=== PATIENT | female | born 1990 | race African-American/Black ===

== ENCOUNTER 2021-10-04 15:26 | Observation (INO) | payer OTHER ==
[2021-10-04 17:03] VITALS: BMI 34.1
[2021-10-04] MEDS ORDERED: Bisacodyl 5 MG TAB PO PRN (18:23)
[2021-10-04] MEDS ORDERED: Acetaminophen 325 MG TAB PO PRN (18:23)
[2021-10-04] MEDS ORDERED: Senokot S 8.6-50 MG TAB PO PRN (18:23)
[2021-10-04] MEDS ORDERED: Polyethylene Glycol 3350 17 GM Packet PO PRN (18:27)
[2021-10-04] MEDS ORDERED: Aspirin 325 MG TAB PO SCH (18:30)
[2021-10-04 19:17] LABS: Troponin I 0.017 ng/mL (< 0.028)
[2021-10-04] MEDS: Famotidine 20 MG TAB PO SCH (20:10)
[2021-10-05 05:24] LABS: Hemoglobin 9.4 g/dL (12.0-16.0); Mean Corpuscular HGB CONC 29.6 g/dL (32.0-36.0); Mean Corpuscular Volume 70.9 fL (78.0-98.0); Mean Platelet Volume 5.9 fL (7.4-10.4); Platelet Count 357 thou/uL (130-400); RBC Distribution Width 23.6 % (11.5-14.5); Red Blood Cell (RBC) Count 4.47 mill/uL (4.20-5.40); White Blood Cell (WBC) Count 4.1 thou/uL (4.8-10.8)
[2021-10-05 05:31] LABS: Anion Gap 12 mmol/L (10-20); BUN (Urea Nitrogen) 9 mg/dL (7.0-18.7); Calc. Creatinine Clearance 144 mL/min (70-130); Calcium 9.2 mg/dL (7.8-10.44); Carbon Dioxide 24 mmol/L (22-29); Chloride 106 mmol/L (98-107); Estimated GFR 108; Glucose 102 mg/dL (70-105); Iron 38 ug/dL (50-170); Iron Binding Capacity, Total 353 mcg/dL (265-497); Potassium 3.4 mmol/L (3.5-5.1); Sodium 139 mmol/L (136-145)
[2021-10-05 05:42] LABS: Reticulocyte Count 1.1 % (0.5-1.5)
[2021-10-05 05:55] LABS: #Eosinphils 0.5 thou/uL (0.0-0.7); #Lymphocytes 1.4 thou/uL (1.20-3.40); #Monocytes 0.4 thou/uL (0.11-0.59); #Neutrophils 1.8 thou/uL (1.40-6.50); %Basophils 0.1 % (0.0-1.0); %Eosinophils 11.5 % (0.0-10.0); %Lymphocytes 34.5 % (21.0-51.0); %Monocytes 9.4 % (0.0-10.0); %Neutrophils 44.5 % (42.0-75.0); Anisocytosis SLIGHT = 6-15 cells (100X) (0-5/hpf); Elliptocytes MODERATE= 6-15 cells (100X) (0-1/hpf); MDiff Complete? YES; Microcytosis SLIGHT = 6-15 cells (100X) (0-5/hpf); Schistocytes SLIGHT = 2-5 cells (100X) (0-1/hpf)
[2021-10-05] MEDS: Aspirin 81 mg Enteric Coated Tablet PO SCH (08:17)
[2021-10-05] MEDS: Famotidine 20 MG TAB PO SCH ×2 (08:17→20:18)
[2021-10-05] MEDS: Polyethylene Glycol 3350 17 GM Packet PO SCH (08:17)
[2021-10-05] MEDS: Ferrous Gluconate 324 MG TAB PO SCH (08:17)
[2021-10-05] MEDS: Enoxaparin Sodium 40 MG/0.4 ML SYRINGE SC SCH (08:17)
[2021-10-05 12:27] LABS: Acetaminophen Less than 10.0 mcg/mL (10.0-30.0); Alcohol Less than 10 mg/dL (Less than 10); Salicylate Less than 8.0 mg/dL (15.0-30.0)
[2021-10-05 17:36] LABS: Amphetamine Detected (NotDetected); Barbiturates Screen Not Detected (NotDetected); Benzodiazepine Screen Not Detected (NotDetected); Cocaine Metabolite Screen Not Detected (NotDetected); Methadone Not Detected (NotDetected); Methamphetamine Detected (NotDetected); Opiate Screen Not Detected (NotDetected); Oxycodone Screen Not Detected (NotDetected); Phencyclidine (PCP) Not Detected (NotDetected); THC/Cannabinoid Screen Detected (NotDetected); Tricyclic Screen Not Detected (NotDetected)
[2021-10-06 07:20] LABS: Anion Gap 13 mmol/L (10-20); BUN (Urea Nitrogen) 9 mg/dL (7.0-18.7); Calc. Creatinine Clearance 159 mL/min (70-130); Calcium 9.8 mg/dL (7.8-10.44); Carbon Dioxide 26 mmol/L (22-29); Chloride 104 mmol/L (98-107); Estimated GFR 119; Glucose 98 mg/dL (70-105); Potassium 3.5 mmol/L (3.5-5.1); Sodium 139 mmol/L (136-145)
[2021-10-06 07:37] LABS: #Eosinphils 0.6 thou/uL (0.0-0.7); #Lymphocytes 1.5 thou/uL (1.20-3.40); #Monocytes 0.4 thou/uL (0.11-0.59); #Neutrophils 2.5 thou/uL (1.40-6.50); %Basophils 0.9 % (0.0-1.0); %Eosinophils 11.9 % (0.0-10.0); %Lymphocytes 29.2 % (21.0-51.0); %Monocytes 8.5 % (0.0-10.0); %Neutrophils 49.6 % (42.0-75.0); Hemoglobin 10.1 g/dL (12.0-16.0); Mean Corpuscular HGB CONC 32.4 g/dL (32.0-36.0); Mean Corpuscular Hemoglobin 22.8 pg (27.0-31.0); Mean Corpuscular Volume 70.4 fL (78.0-98.0); Mean Platelet Volume 5.8 fL (7.4-10.4); Platelet Count 364 thou/uL (130-400); Red Blood Cell (RBC) Count 4.43 mill/uL (4.20-5.40); White Blood Cell (WBC) Count 5.1 thou/uL (4.8-10.8)
[2021-10-06] MEDS: Ferrous Gluconate 324 MG TAB PO SCH (09:20)
[2021-10-06] MEDS: Aspirin 81 mg Enteric Coated Tablet PO SCH (09:21)
[2021-10-06] MEDS: Famotidine 20 MG TAB PO SCH ×2 (09:21→21:45)
[2021-10-06] MEDS: Enoxaparin Sodium 40 MG/0.4 ML SYRINGE SC SCH (09:21)
[2021-10-06] MEDS: Polyethylene Glycol 3350 17 GM Packet PO SCH (09:24)
[2021-10-07 05:50] LABS: Anion Gap 12 mmol/L (10-20); BUN (Urea Nitrogen) 10 mg/dL (7.0-18.7); Calc. Creatinine Clearance 156 mL/min (70-130); Calcium 9.5 mg/dL (7.8-10.44); Carbon Dioxide 27 mmol/L (22-29); Chloride 103 mmol/L (98-107); Estimated GFR 118; Glucose 96 mg/dL (70-105); Potassium 3.6 mmol/L (3.5-5.1); Sodium 138 mmol/L (136-145)
[2021-10-07 06:24] LABS: #Basophils 0.1 thou/uL (0.0-0.2); #Eosinphils 0.5 thou/uL (0.0-0.7); #Lymphocytes 1.8 thou/uL (1.20-3.40); #Monocytes 0.4 thou/uL (0.11-0.59); #Neutrophils 2.7 thou/uL (1.40-6.50); %Eosinophils 9.4 % (0.0-10.0); %Lymphocytes 32.5 % (21.0-51.0); %Monocytes 7.5 % (0.0-10.0); %Neutrophils 49.7 % (42.0-75.0); Anisocytosis SLIGHT = 6-15 cells (100X) (0-5/hpf); Elliptocytes MODERATE= 6-15 cells (100X) (0-1/hpf); Hemoglobin 10.2 g/dL (12.0-16.0); MDiff Complete? YES; Mean Corpuscular HGB CONC 30.7 g/dL (32.0-36.0); Mean Corpuscular Hemoglobin 21.9 pg (27.0-31.0); Mean Corpuscular Volume 71.3 fL (78.0-98.0); Mean Platelet Volume 6.4 fL (7.4-10.4); Microcytosis SLIGHT = 6-15 cells (100X) (0-5/hpf); Platelet Count 401 thou/uL (130-400); RBC Distribution Width 24.6 % (11.5-14.5); Red Blood Cell (RBC) Count 4.69 mill/uL (4.20-5.40); Schistocytes SLIGHT = 2-5 cells (100X) (0-1/hpf); White Blood Cell (WBC) Count 5.5 thou/uL (4.8-10.8)
[2021-10-07] MEDS: Polyethylene Glycol 3350 17 GM Packet PO SCH (08:58)
[2021-10-07] MEDS: Enoxaparin Sodium 40 MG/0.4 ML SYRINGE SC SCH (08:58)
[2021-10-07] MEDS: Ferrous Gluconate 324 MG TAB PO SCH (08:59)
[2021-10-07] MEDS: Famotidine 20 MG TAB PO SCH (09:00)
[2021-10-07] MEDS: Aspirin 81 mg Enteric Coated Tablet PO SCH (09:00)
[2021-10-07 11:51] VITALS: BP 126/94; TEMP 98.2
== END 2021-10-07 15:09 | disposition home or self-care (01) ==
LOC: 2SW 15:26
PROVIDERS: ADMIT Internal Medicine; ATTEND Internal Medicine
DX: R07.89 Other chest pain (principal); M79.10 Myalgia, unspecified site; F15.10 Other stimulant abuse, uncomplicated; U07.1 COVID-19; D50.9 Iron deficiency anemia, unspecified; R55 Syncope and collapse; K59.00 Constipation, unspecified; G89.29 Other chronic pain; M54.9 Dorsalgia, unspecified; F17.210 Nicotine dependence, cigarettes, uncomplicated; G93.41 Metabolic encephalopathy; I08.8 Other rheumatic multiple valve diseases; R82.1 Myoglobinuria; Z88.0 Allergy status to penicillin; Z91.040 Latex allergy status; Z91.048 Other nonmedicinal substance allergy status
CPT/HCPCS: 36415; 80048; 80143; 80179; 80306; 80307; 82550; 82728; 83540; 83550; 84484; 85025; 85046; 85060; 85379; 93005; 93010; 93306; 96372; G0378; J1650

== ENCOUNTER 2023-03-12 21:10 | Observation (INO) | payer OTHER ==
[2023-03-13 00:21] VITALS: BMI 35.2
[2023-03-13] MEDS ORDERED: Ondansetron PF 4 MG/2 ML Vial IVP PRN (00:30)
[2023-03-13] MEDS ORDERED: Acetaminophen 325 MG TAB PO PRN (00:30)
[2023-03-13] MEDS ORDERED: Vancomycin (BATCH) 1.75 GM in Premix 1 BAG IVPB SCH (02:00)
[2023-03-13 04:08] LABS: #Eosinphils 0.3 thou/uL (0.0-0.7); #Monocytes 0.4 thou/uL (0.11-0.59); #Neutrophils 3.7 thou/uL (1.40-6.50); %Basophils 0.5 % (0.0-1.0); %Eosinophils 4.6 % (0.0-10.0); %Monocytes 6.3 % (0.0-10.0); %Neutrophils 56.1 % (42.0-75.0); Hematocrit 26.2 % (36.0-47.0); Hematocrit 26.8 % (36.0-47.0); Hemoglobin 7.5 g/dL (12.0-16.0); Mean Corpuscular HGB CONC 28.6 g/dL (32.0-36.0); Mean Corpuscular Hemoglobin 19.6 pg (27.0-31.0); Mean Corpuscular Volume 68.6 fl (78.0-98.0); Mean Platelet Volume 9.3 fL (7.4-10.4); Platelet Count 620 10x3/uL (130-400); RBC Distribution Width 20.7 % (11.5-14.5); Red Blood Cell (RBC) Count 3.82 mill/uL (4.20-5.40); White Blood Cell (WBC) Count 6.6 10x3/uL (4.8-10.8)
[2023-03-13 04:43] LABS: Amphetamine Detected (NotDetected); Barbiturates Screen Not Detected (NotDetected); Benzodiazepine Screen Not Detected (NotDetected); Cocaine Metabolite Screen Not Detected (NotDetected); Methadone Not Detected (NotDetected); Methamphetamine Detected (NotDetected); Opiate Screen Not Detected (NotDetected); Oxycodone Screen Not Detected (NotDetected); Phencyclidine (PCP) Not Detected (NotDetected); THC/Cannabinoid Screen Detected (NotDetected); Tricyclic Screen Not Detected (NotDetected)
[2023-03-13 04:55] LABS: Anion Gap 14 mmol/L (10-20); BUN (Urea Nitrogen) 9 mg/dL (7.0-18.7); Calc. Creatinine Clearance 138 mL/min (70-130); Calcium 9.3 mg/dL (7.8-10.44); Carbon Dioxide 22 mmol/L (22-29); Chloride 103 mmol/L (98-107); Estimated GFR 108; Glucose 116 mg/dL (70-105); Iron 54 ug/dL (50-170); Iron Binding Capacity, Total 410 mcg/dL (265-497); Potassium 4.3 mmol/L (3.5-5.1); Sodium 135 mmol/L (136-145)
[2023-03-13 05:21] LABS: Ferritin 3.32 ng/mL (10-291)
[2023-03-13] MEDS: HYDROcodone/Acetaminophen 10/325 mg Tablet PO PRN ×2 (08:23→13:50)
[2023-03-13] MEDS: Vancomycin 1 GM in Premix 1 BAG IVPB SCH ×2 (10:16→17:47)
[2023-03-13] MEDS: cefTRIAXone\\ROCEPHIN 1 GM in Sodium Chloride 0.9% 100 ML IVPB SCH (13:43)
[2023-03-14 01:48] LABS: Vancomycin, Trough 18.4 ug/mL
[2023-03-14] MEDS: Vancomycin 1 GM in Premix 1 BAG IVPB SCH ×3 (03:31→20:45)
[2023-03-14] MEDS: HYDROcodone/Acetaminophen 10/325 mg Tablet PO PRN ×2 (09:18→20:51)
[2023-03-14] MEDS: Ferrous Sulfate 325 MG TAB PO SCH (09:19)
[2023-03-14] MEDS: cefTRIAXone\\ROCEPHIN 1 GM in Sodium Chloride 0.9% 100 ML IVPB SCH (15:01)
[2023-03-15 02:04] LABS: Vancomycin, Trough 21.6 ug/mL
[2023-03-15] MEDS: Vancomycin 1 GM in Premix 1 BAG IVPB SCH (02:16)
[2023-03-15] MEDS ORDERED: Vancomycin 1 GM in Premix 1 BAG IVPB SCH (04:00)
[2023-03-15] MEDS: Ferrous Sulfate 325 MG TAB PO SCH (09:10)
[2023-03-15] MEDS ORDERED: Vancomycin HCl 750 MG in Sodium Chloride 0.9% 250 ML 250 ML IVPB SCH (12:00)
[2023-03-15] MEDS: cefTRIAXone\\ROCEPHIN 1 GM in Sodium Chloride 0.9% 100 ML IVPB SCH (12:34)
[2023-03-15 17:29] VITALS: BP 119/83; TEMP 98.3
== END 2023-03-15 18:58 | disposition home or self-care (01) ==
LOC: 2SE 03-13 00:01 → T4-A 03-14 18:18
PROVIDERS: ADMIT Student in an Organized Health Care Education/Training Program; ATTEND Internal Medicine
DX: L03.116 Cellulitis of left lower limb (principal); L03.115 Cellulitis of right lower limb; D50.9 Iron deficiency anemia, unspecified; F19.10 Other psychoactive substance abuse, uncomplicated; G89.29 Other chronic pain; M54.9 Dorsalgia, unspecified; Z88.0 Allergy status to penicillin; Z88.8 Allergy status to other drugs, medicaments and biological substances; Z91.040 Latex allergy status
CPT/HCPCS: 36415; 80048; 80202; 80306; 82565; 82607; 82728; 83540; 83550; 85014; 85018; 87040; 93970; 96372; 96374; 96375; 96376; G0378; J0696; J1650; J3370; J3370-JW; J3490